=== PATIENT | female | born 1960 | race African-American/Black ===

== ENCOUNTER 2017-07-10 19:31 | Inpatient (IN) | payer OTHER ==
[~2017-07-10] VITALS: Ht 167.6 cm; Wt 121.2 kg
[~2017-07-10 19:31] MED LIST: ALBUTEROL1.25 MG/3 NEB; ALLOPURINOL100 MG; ALPRAZOLAM0.25 M1 PO; AMBIEN5 MG PO; AMLODIPINE BES2.5 M1 PO; APR10 PO; APR25 PO; ASPIR 8181 MG PO; ATROVENT H0.017 MG/1; BIAXIN FILMTAB250 MG PO; CALCITRIOL0.25 MCG PO; CLONIDINE HCL0.1 MG PO; CLONIDINE HCL0.2 MG PO; COQ10 IN OIL1 SGL PO; FERROUS SULFAT325 M2 PO; GLIPIZIDE2.5 M1 PO; HUMULIN R100 U/1 M1; IPRATROPIUM BR HHN; IPRATROPIUM BROM3 M2 HHN; L40 PO; LAC PO; LANTUS SOLOS100 U/M1 SQ; LEV250 PO; LIPI10 PO; LISINOPRIL2.5 MG PO; LOP50 PO; MEDDP PO; METOPROLOL SUCC25 M1 PO; NATURAL IRON65 MG; PROMETHAZI6.25 MG/5 PO; PROTONIX20 MG PO; PROVENTIL0.09 MG/A1; VITAMIN D1 SG1; VITAMIN D32000 I2 PO; ZES10 PO
[2017-07-10 20:55] LABS: BASOPHIL % 0.1 % (0-2); PLATELET COUNT 327 x10^3mcL (130-400)
[2017-07-10 21:05] LABS: CALCIUM 8.1 mg/dL (8.5-10.1); CARBON DIOXIDE 24.5 mmol/L (21-32); CREATININE SERUM 3.1 mg/dL (0.6-1.0)
[2017-07-10 21:09] LABS: BILIRUBIN TOTAL 0.5 mg/dL (0.20-1.00)
[2017-07-10 21:11] LABS: ALBUMIN 2.5 g/dL (3.4-5.0); TOTAL PROTEIN, SERUM 5.6 g/dL (6.4-8.2)
[2017-07-10 22:43] VITALS: BP 163/75
[2017-07-10 22:52] VITALS: BP 163/75; Ht 167.6 cm; Wt 121.2 kg
[2017-07-10 23:05] LABS: CHOLESTEROL/HDL RATIO 3.1; MAGNESIUM 1.2 mg/dL (1.8-2.4); PHOSPHOROUS 3.7 mg/dL (2.5-4.9)
[2017-07-10 23:14] LABS: T3 TOTAL 1.18 ng/mL
[2017-07-10 23:16] LABS: FREE T4 1.27 ng/dL (0.76-1.46); FREE THYROXINE INDEX 3.7 ug/dL (1.4-4.5); T4(THYROXINE) 10.2 ug/dL (4.7-13.3)
[2017-07-10 23:37] LABS: IRON 39 ug/dL (50-170); TOTAL IRON BINDING CAPACITY 239 ug/dL (250-450)
[2017-07-10 23:44] LABS: RED BLOOD CELLS 3.25 M/mm3 (4.10-5.10)
[2017-07-11 03:40] LABS: microscopic required? YES; urine erythrocyte 1+ (NEGATIVE)
[2017-07-11 03:46] LABS: AMPHETAMINE QUAL UR NONE DETECTED (NEG <=1000)
[2017-07-11 05:35] VITALS: BP 145/67
[2017-07-11 06:04] LABS: CALCIUM 8.7 mg/dL (8.5-10.1); CARBON DIOXIDE 22.6 mmol/L (21-32); CREATININE SERUM 3.3 mg/dL (0.6-1.0); POTASSIUM SERUM 4.1 mmol/L (3.5-5.1)
[2017-07-11 06:16] LABS: MAGNESIUM 1.1 mg/dL (1.8-2.4); PHOSPHOROUS 4.6 mg/dL (2.5-4.9)
[2017-07-11 06:19] LABS: PLATELET COUNT 293 x10^3mcL (130-400)
[2017-07-11 06:25] LABS: BASOPHIL % 0 % (0-2); RED CELL DISTRIBUTION WIDTH 18.7 % (11.5-14.5)
[2017-07-11 10:04] VITALS: BP 153/71
[2017-07-11 14:26] VITALS: BP 140/63
[2017-07-11 18:17] VITALS: BP 149/65
[2017-07-11 21:47] VITALS: BP 139/53
[2017-07-12 05:56] VITALS: BP 123/64
[2017-07-12 07:18] LABS: PLATELET COUNT 268 x10^3mcL (130-400)
[2017-07-12 07:19] LABS: BASOPHIL % 0 % (0-2); RED CELL DISTRIBUTION WIDTH 18.5 % (11.5-14.5)
[2017-07-12 07:43] LABS: CALCIUM 8.8 mg/dL (8.5-10.1); CARBON DIOXIDE 21.2 mmol/L (21-32); CREATININE SERUM 3.4 mg/dL (0.6-1.0); MAGNESIUM 2.1 mg/dL (1.8-2.4); POTASSIUM SERUM 4.9 mmol/L (3.5-5.1)
[2017-07-12 10:19] VITALS: BP 156/79
[2017-07-12 14:23] VITALS: BP 142/59
[2017-07-12 18:02] VITALS: BP 137/67
[2017-07-12 21:28] VITALS: BP 137/65
[2017-07-13 05:16] VITALS: BP 154/74
[2017-07-13 07:36] LABS: CALCIUM 8.6 mg/dL (8.5-10.1); CARBON DIOXIDE 21.8 mmol/L (21-32); CREATININE SERUM 3.2 mg/dL (0.6-1.0); MAGNESIUM 2.6 mg/dL (1.8-2.4); PHOSPHOROUS 4.1 mg/dL (2.5-4.9); POTASSIUM SERUM 4.4 mmol/L (3.5-5.1)
[2017-07-13 07:37] LABS: BASOPHIL % 0 % (0-2); PLATELET COUNT 326 x10^3mcL (130-400); RED CELL DISTRIBUTION WIDTH 18.3 % (11.5-14.5)
[2017-07-13] MEDS ORDERED: CLA10 PO (09:12)
[2017-07-13] MEDS ORDERED: LEVAQUIN500 M1 PO (09:21)
[2017-07-13] MEDS ORDERED: CEPACOL SORE TH1 LO4 MM (09:23)
[2017-07-13] MEDS ORDERED: MONTELUKAST SOD10 M1 PO (09:23)
[2017-07-13] MEDS ORDERED: PEP20 PO (09:24)
[2017-07-13] MEDS ORDERED: PREDNISONE10 M1 PO (09:29)
[2017-07-13] MEDS ORDERED: ADV250/50 INH (09:30)
[2017-07-13 09:54] VITALS: BP 159/63
[2017-07-13 13:55] VITALS: BP 159/63
== END 2017-07-13 15:04 | disposition home or self-care (01) | DRG 190 ==
LOC: ED 19:31 → DU 21:49
PROVIDERS: Emergency Medicine; Family Medicine; ADMIT Family Medicine
DX: J44.1 Chronic obstructive pulmonary disease with (acute) exacerbation (principal); N17.0 Acute kidney failure with tubular necrosis; E43 Unspecified severe protein-calorie malnutrition; I50.43 Acute on chronic combined systolic (congestive) and diastolic (congestive) heart failure; J96.21 Acute and chronic respiratory failure with hypoxia; N18.5 Chronic kidney disease, stage 5; Z68.41 Body mass index [BMI] 40.0-44.9, adult; I13.2 Hypertensive heart and chronic kidney disease with heart failure and with stage 5 chronic kidney disease, or end stage renal disease; E11.22 Type 2 diabetes mellitus with diabetic chronic kidney disease; E11.65 Type 2 diabetes mellitus with hyperglycemia; E11.21 Type 2 diabetes mellitus with diabetic nephropathy; D63.1 Anemia in chronic kidney disease; E83.41 Hypermagnesemia; G47.33 Obstructive sleep apnea (adult) (pediatric); D72.829 Elevated white blood cell count, unspecified; E66.01 Morbid (severe) obesity due to excess calories; R80.9 Proteinuria, unspecified; R31.9 Hematuria, unspecified; N28.1 Cyst of kidney, acquired; E83.51 Hypocalcemia; E87.8 Other disorders of electrolyte and fluid balance, not elsewhere classified; M10.9 Gout, unspecified; Z79.4 Long term (current) use of insulin; Z79.84 Long term (current) use of oral hypoglycemic drugs; T38.0X5A Adverse effect of glucocorticoids and synthetic analogues, initial encounter; Y92.238 Other place in hospital as the place of occurrence of the external cause
CPT/HCPCS: 83880; 84439; 94150; J0610; J1644; J1815; J1940; J1956; J2543; J2920; J2930; J3475; J3490; J7030; J7050; J7613; J7620; J7644; Q0092

== ENCOUNTER 2017-09-17 10:25 | Emergency (ER) | payer OTHER ==
[~2017-09-17] VITALS: Ht 167.6 cm; Wt 112.9 kg
[~2017-09-17 10:25] MED LIST changes: +ADV250/50 INH; +CEPACOL SORE TH1 LO4 MM; +CLA10 PO; +LEVAQUIN500 M1 PO; +MONTELUKAST SOD10 M1 PO; +PEP20 PO; +PREDNISONE10 M1 PO
[2017-09-17 10:34] VITALS: Ht 167.6 cm; Wt 112.9 kg
[2017-09-17 16:18] VITALS: BP 172/88
== END 2017-09-17 16:20 | disposition home or self-care (01) ==
LOC: ED 10:25
DX: J44.9 Chronic obstructive pulmonary disease, unspecified (principal); I11.0 Hypertensive heart disease with heart failure; I50.9 Heart failure, unspecified; E11.9 Type 2 diabetes mellitus without complications; Z79.51 Long term (current) use of inhaled steroids
CPT/HCPCS: J7613

== ENCOUNTER 2017-11-10 16:07 | Inpatient (IN) | payer OTHER ==
[~2017-11-10] VITALS: Ht 167.6 cm; Wt 114.5 kg
[2017-11-10 16:11] VITALS: Ht 167.6 cm; Wt 114.5 kg
[2017-11-10 16:55] LABS: BASOPHIL % 0.4 % (0-2); PLATELET COUNT 243 x10^3mcL (130-400)
[2017-11-10 17:00] LABS: RED CELL DISTRIBUTION WIDTH 18.7 % (11.5-14.5)
[2017-11-10 17:19] LABS: T3 TOTAL 1.11 ng/mL
[2017-11-10 17:37] LABS: ERYTHROCYTE SED RATE 60 mm/hr (0-30)
[2017-11-10 17:40] LABS: FREE T4 1.12 ng/dL (0.76-1.46); FREE THYROXINE INDEX 3.1 ug/dL (1.4-4.5); T4(THYROXINE) 9.5 ug/dL (4.7-13.3)
[2017-11-10 18:21] LABS: BILIRUBIN TOTAL 0.5 mg/dL (0.20-1.00); C REACTIVE PROTEIN 2.7 mg/dL (<=0.9); CALCIUM 8.7 mg/dL (8.5-10.1); CARBON DIOXIDE 24.1 mmol/L (21-32); TOTAL PROTEIN, SERUM 6.2 g/dL (6.4-8.2)
[2017-11-10 18:26] LABS: ALBUMIN 2.8 g/dL (3.4-5.0)
[2017-11-10 18:28] LABS: CREATININE SERUM 4.1 mg/dL (0.6-1.0)
[2017-11-10] MEDS ORDERED: FUROSEMIDE40 MG PO (18:52)
[2017-11-10 20:37] VITALS: BP 150/76
[2017-11-10 20:39] VITALS: BP 135/86
[2017-11-10 20:41] VITALS: BP 150/76
[2017-11-10 21:09] LABS: MAGNESIUM 1.6 mg/dL (1.8-2.4); PHOSPHOROUS 3.9 mg/dL (2.5-4.9)
[2017-11-10 21:17] LABS: CHOLESTEROL/HDL RATIO 3.4
[2017-11-11 02:24] LABS: UA SPECIFIC GRAVITY 1.015 (1.005-1.035); microscopic required? YES; urine erythrocyte 2+ (NEGATIVE)
[2017-11-11 02:45] LABS: AMPHETAMINE QUAL UR NONE DETECTED (NEG <=1000)
[2017-11-11 05:26] VITALS: BP 153/71
[2017-11-11 07:25] LABS: PLATELET COUNT 163 x10^3mcL (130-400)
[2017-11-11 07:42] LABS: CALCIUM 8.5 mg/dL (8.5-10.1); CARBON DIOXIDE 22.7 mmol/L (21-32); MAGNESIUM 1.7 mg/dL (1.8-2.4); POTASSIUM SERUM 4.7 mmol/L (3.5-5.1); RED CELL DISTRIBUTION WIDTH 18.1 % (11.5-14.5)
[2017-11-11 07:58] LABS: CREATININE SERUM 4.1 mg/dL (0.6-1.0)
[2017-11-11 08:11] LABS: ATYPICAL LYMPH 2 %; BAND NEUTROPHIL 1 % (0-10); MONOCYTE 2 % (0-7); SEGMENTED NEUTROPHILS 83 % (37-75)
[2017-11-11 08:12] LABS: ovalocyte/elliptocyte 1+; rbc morphology (normal/abnorm) ABNORMAL (NORMAL)
[2017-11-11 09:32] VITALS: BP 154/65
[2017-11-11 13:48] VITALS: BP 155/71
[2017-11-11 17:36] VITALS: BP 157/77
[2017-11-11 21:26] VITALS: BP 148/72
[2017-11-12 06:20] LABS: PLATELET COUNT 227 x10^3mcL (130-400)
[2017-11-12 06:22] VITALS: BP 153/71
[2017-11-12 06:34] LABS: BASOPHIL % 0 % (0-2); RED CELL DISTRIBUTION WIDTH 18.5 % (11.5-14.5)
[2017-11-12 07:07] LABS: CALCIUM 9.2 mg/dL (8.5-10.1); CARBON DIOXIDE 22.5 mmol/L (21-32); CREATININE SERUM 3.9 mg/dL (0.6-1.0); MAGNESIUM 2.2 mg/dL (1.8-2.4); POTASSIUM SERUM 4.1 mmol/L (3.5-5.1)
[2017-11-12 10:05] VITALS: BP 156/74
[2017-11-12 12:16] VITALS: BP 156/74
[2017-11-12] MEDS ORDERED: COREG12.5 MG PO (12:24)
[2017-11-12] MEDS ORDERED: MEDDP PO (12:30)
[2017-11-12 12:57] VITALS: BP 165/85
[2017-11-12 15:17] VITALS: BP 152/70
[2017-11-12] MEDS ORDERED: KLOR-CON M2020 MEQ PO (15:37)
[2017-11-12] MEDS ORDERED: APR25 PO (16:19)
[2017-11-12] MEDS ORDERED: LEVAQUIN750 MG PO (16:24)
[2017-11-12] MEDS ORDERED: LAC PO (16:25)
== END 2017-11-12 17:20 | disposition home or self-care (01) | DRG 291 ==
LOC: ED 16:07 → DU 18:34
PROVIDERS: Family Medicine; Internal Medicine Cardiovascular Disease; Specialist
DX: I13.2 Hypertensive heart and chronic kidney disease with heart failure and with stage 5 chronic kidney disease, or end stage renal disease (principal); I50.43 Acute on chronic combined systolic (congestive) and diastolic (congestive) heart failure; N17.0 Acute kidney failure with tubular necrosis; E43 Unspecified severe protein-calorie malnutrition; J96.00 Acute respiratory failure, unspecified whether with hypoxia or hypercapnia; J44.1 Chronic obstructive pulmonary disease with (acute) exacerbation; Z68.41 Body mass index [BMI] 40.0-44.9, adult; N18.5 Chronic kidney disease, stage 5; E11.21 Type 2 diabetes mellitus with diabetic nephropathy; E11.22 Type 2 diabetes mellitus with diabetic chronic kidney disease; E83.42 Hypomagnesemia; I42.0 Dilated cardiomyopathy; I08.1 Rheumatic disorders of both mitral and tricuspid valves; E78.5 Hyperlipidemia, unspecified; M10.9 Gout, unspecified; K21.9 Gastro-esophageal reflux disease without esophagitis; D63.1 Anemia in chronic kidney disease; F41.9 Anxiety disorder, unspecified; E66.01 Morbid (severe) obesity due to excess calories; Z83.3 Family history of diabetes mellitus; Z82.49 Family history of ischemic heart disease and other diseases of the circulatory system; Z98.51 Tubal ligation status; Z79.82 Long term (current) use of aspirin; Z79.4 Long term (current) use of insulin
CPT/HCPCS: 83880; 84439; J1815; J1940; J1956; J2920; J2930; J3475; J7030; J7613; J7620; J7644

== ENCOUNTER 2018-10-31 16:49 | Observation (INO) | payer OTHER ==
[~2018-10-31] VITALS: Ht 167.6 cm; Wt 111.6 kg
[~2018-10-31 16:49] MED LIST changes: +COREG12.5 MG PO; +FUROSEMIDE40 MG PO; +KLOR-CON M2020 MEQ PO; +LEVAQUIN750 MG PO
[2018-10-31 16:57] VITALS: Ht 167.6 cm; Wt 111.6 kg
--- NOTE | 2018-10-31 17:11 | NUR ---
PT PRESENTS TO ED WITH COUGHING, SOB, AND COLD FOR THE PAST 3-4 WEEKS. STS SHE WENT TO DIALYSIS THIS AM. STS THE SOB HAS NOT IMPROVED AND CAME TO ED FOR TREATMENT. DR. HINDS AT BEDSIDE PERFORMED MSE
--- NOTE | 2018-10-31 17:25 | NUR ---
BREATHING TREATMENT IN PROGRESS
[2018-10-31 17:33] LABS: BASOPHIL % 0.1 % (0-2); PLATELET COUNT 279 x10^3mcL (130-400)
[2018-10-31 17:41] LABS: CALCIUM 9.1 mg/dL (8.5-10.1); CARBON DIOXIDE 33.4 mmol/L (21-32); CREATININE SERUM 2.9 mg/dL (0.6-1.0); POTASSIUM SERUM 3.9 mmol/L (3.5-5.1)
[2018-10-31 17:46] LABS: BILIRUBIN TOTAL 1.19 mg/dL (0.20-1.00); TOTAL PROTEIN, SERUM 7.1 g/dL (6.4-8.2)
--- NOTE | 2018-10-31 19:28 | NUR ---
PT RESTING QUIETLY. RESPIRATIONS EVEN AND UNLABORED. PT ON OXYGEN AT 3LPM VIA NC. OXYGEN TURNED DOWN TO 2LPM VIA NC. LUNGS CLEAR BILAT. PT DENIES PAIN OR COMPLAINT AT THIS TIME.
--- NOTE | 2018-10-31 20:03 | NUR ---
PT DOES NOT HAVE HER PARTIAL DENTURE WITH HER.
--- NOTE | 2018-10-31 21:18 | NUR ---
REPORT TO FERNANDEZ SANTIAGO ON TELE.
--- NOTE | 2018-10-31 21:30 | NUR ---
RECIEVED PATIENT AT 213O FROM ER VIA [facility]. PATIENT AMBULATED TO BED. HOOKED UP ON 2L NC. SATTING 93%. PATIENT ORIENTED TO TOOM AND USE OF CALL LIGHT. BED LOCKED AND IN LOWEST POSITION. CALL LIGHT AND BEDSIDE TABLE WITHIN REACH. ANKUSH HANLEY RN TO ADMIT PATIENT.
[2018-10-31 21:51] VITALS: BP 147/79
[2018-10-31 21:52] VITALS: BP 149/75
--- NOTE | 2018-10-31 22:03 | NUR ---
RECEIVED PT FROM ER. PT ADMIT FOR SOB, PNA, PT IS A/O X4, VERBAL RESPONSIVE, ABLE TO TELL WHAT SHE NEEDS. LUNG SOUND WHEEZING CARINE, DENY ANY SOB AT THIS MOMENT. C/O OCCASIONAL COUGH, PT IS ON 2L/MIN O2 VIA NC. PO2 93%. PT IS ON TELE 30, NSR, DENY ANY CHEST PAIN OR DISCOMFORT, BOWEL SOUND PRESENT ALL 4 QUADRANTS, NO DISTENTION, NO TENDER. PEDAL PULSE PRESENT BOTH FEET, NO EDEMA, IV AT LEFT AC, NO LEAKING, NO INFILTRATION. AV SHUNT AT RIGHT UPPER ARM, B/T PRESENT WELL, ALL ADLS ASSIST, ALL NEED MET, CALL LIGHT IN REACH, WILL CONTINUE TO MONITOR.
--- NOTE | 2018-11-01 02:17 | NUR ---
PATIENT'S EYES ARE CLOSED, BREATHS EVEN AND REGUALR. NO CHANGE IN STATUS. WILL CONTINEU TO MONITOR.
[2018-11-01 05:51] VITALS: BP 141/73
--- NOTE | 2018-11-01 06:50 | NUR ---
NO CHANGE IN PATIENT STATUS OVERNIGHT. LUNGS HAVE SLIGHT WHEEZE THROUGHOUT. ON 2L NC, NO SOB NOTED. BED LOCKED AND IN LOWEST POSITION. CALL LIGHT AND BEDSIDE TABLE WITHIN REACH. WILL ENDORSE CARE TO MORNING NURSE.
[2018-11-01 07:07] LABS: CALCIUM 9.3 mg/dL (8.5-10.1); CARBON DIOXIDE 27.9 mmol/L (21-32); CREATININE SERUM 3.5 mg/dL (0.6-1.0); MAGNESIUM 1.7 mg/dL (1.8-2.4); POTASSIUM SERUM 3.9 mmol/L (3.5-5.1)
--- NOTE | 2018-11-01 07:54 | NUR ---
AAO TIMES 4. TELE # 30 SR. LUNGS CTA BILATERALLY, WITH DIMINISHED LLL. O2 SAT ON 2L NC 95%. BS'S ACTIVE TIMES 4. LONG WITH SLIGHT GENERALIZED WEAKNESS. PERIPHERAL PULSES PALPABLE. NO EDEMA. AV SHUNT TO RUE WITH BRUIT AND THRILL. NO C/O PAIN. NO SOB. PLEASANT, COOPERATIVE.
[2018-11-01 07:59] LABS: PLATELET COUNT 242 x10^3mcL (130-400)
[2018-11-01 08:01] LABS: BASOPHIL % 0 % (0-2); RED CELL DISTRIBUTION WIDTH 15.6 % (11.5-14.5)
[2018-11-01 08:25] VITALS: BP 149/69
--- NOTE | 2018-11-01 12:04 | NUR ---
DR COLON WAS PAGED AT [phone] AND HE WAS REPAGED AGAIN AND CALLED BACK AT 1202. HE IS AWARE THAT HER BLOOD SUGAR WAS 501 AND REPEATED IT WAS 507. GIVE THE ORDERED AMOUNT OF INSULIN ACCORDING TO THE SLIDING SCALE, DECREASE THE SOLUMEDROL TO BID AND GIVE 2 GRAMS OF MAGNESIUM IVPB FOR MAG OF 1.7.
[2018-11-01 12:30] VITALS: BP 172/83
--- NOTE | 2018-11-01 16:51 | NUR ---
I CALLED DR COLON'S OFFICE EXCHANGE AT 1618 FOR BLOOD SUGAR OF 522, THEN RECHECK IT WAS 575, HE DID NOT CALL BACK. I REPAGED HIM AGAIN AT 1647 AND HE CALLED BACK AT 1650, HE WANTS THE SOLUMEDROL DOSE TO BE DECREASED TO ONCE DAILY INSTEAD OF BID AND HE WANTS HER TO GET INSULIN 30 UNITS SQ ONCE STAT.
--- NOTE | 2018-11-01 17:57 | NUR ---
AAO TIMES 4. HD NURSE TRIED TO START HD BUT HER RUE AV SHUNT WAS CLOTTED AND IT COULDNT BE DONE. ANOTHER NEW HD NURSE WILL RETRY TOMORROW, AND IF IT IS STILL CLOTTED, DR ARORA WOULD LIKE HER TO GO TO A HIGHER LEVEL OF CARE TO GET IT UNCLOTTED. TELE # 30 SR. NO C/O PAIN. NO SOB. COOPERATIVE.
[2018-11-01 18:05] VITALS: BP 146/80
--- NOTE | 2018-11-01 20:00 | NUR ---
PATIENT RECEIVED AWAKE, ALERT, ORIENTED X4 IN BED. RESPIRATION EVEN AND UNLABORED, ON O2 2L PER NASAL CANNULA. ONGOING 0.9% NS AT TKO. HEMODIALYSIS PATIENT (MWF). GENERALIZED WEAKNESS TO EXTREMITIES. SKIN DRY AND INTACT. ON TELE #30. WILL CONTINUE TO MONITOR.
[2018-11-01 20:22] VITALS: BP 183/69
[2018-11-02] VITALS (7 sets, daily range): BP systolic 134–177; BP diastolic 63–82
--- NOTE | 2018-11-02 06:20 | NUR ---
PATIENT AWAKE IN BED TALKING ON THE PHONE. RESPIRATION EVEN AND UNLABORED, ON O2 2L PER NASAL CANNULA. DENIES DISCOMFORT/PAIN AT THIS TIME. IV SITE TO LEFT ANTECUBITAL AREA PATENT AND INTACT. RIGHT UPPER ARM AV SHUNT +THRILL AND BRUIT. ASSISTED WITH NEEDS. SAFETY OBSERVED. PLACED BED IN THE LOWEST POSITION. PLACED CALL LIGHT WITHIN REACH AT ALL TIMES.
[2018-11-02 06:44] LABS: CALCIUM 9.1 mg/dL (8.5-10.1); CARBON DIOXIDE 28.9 mmol/L (21-32); CREATININE SERUM 3.9 mg/dL (0.6-1.0); MAGNESIUM 2.4 mg/dL (1.8-2.4); PHOSPHOROUS 3.2 mg/dL (2.5-4.9); POTASSIUM SERUM 3.9 mmol/L (3.5-5.1)
[2018-11-02 06:48] LABS: BILIRUBIN DIRECT 0.13 mg/dL (0.0-0.2); BILIRUBIN TOTAL 0.3 mg/dL (0.20-1.00); TOTAL PROTEIN, SERUM 6.6 g/dL (6.4-8.2)
[2018-11-02 07:16] LABS: BASOPHIL % 0 % (0-2); PLATELET COUNT 249 x10^3mcL (130-400); RED CELL DISTRIBUTION WIDTH 15.8 % (11.5-14.5)
[2018-11-02 07:24] LABS: ALBUMIN 2.7 g/dL (3.4-5.0)
--- NOTE | 2018-11-02 07:30 | NUR ---
PT ENDORSE TO ME THIS MORNING. LAYING IN BED RESTING. AA/OX4. BREATHING EVEN AND UNLABORED 2L NC, NO ACUTE RESP DISTRESS OR SOB NOTED. TELE 30 NSR, HR 95/ DENIES ANY CP OR PRESSURE. HEMODIALYSIS PT MWF, DUE TO DIALYSIS TODAY. RIGHT AV SHUNT INPLACE/BRUIT AND THRILL PRESENT. BOWEL SOUNDS ACTIVE IN ALL FOUR QUADS. PATIENT STATED SHE VOIDS STILL REG. GEN WEAKNESS NOTED/ABM. SKIN WARM TO TOUCH AND INTACT. IV TO THE LAC INTACT AND PATENT. NO REDNESS OR SWELLING NOTED.CALL LIGHT IN REACH. BED IN LOW POSITION. WILL CONTINUE PLAN OF CARE.
--- NOTE | 2018-11-02 13:20 | NUR ---
PT TOLERATED 100 % OF LUNCH. DENIES ANY SOB OR DISCOMFORT AT THIS TIME/ WILL CONTINUE TO MONITOR.
--- NOTE | 2018-11-02 15:51 | NUR ---
HD COMPLETE/ TOTAL OUTPUT 2L, VS 134/69, MAP 90 HR 83
--- NOTE | 2018-11-02 18:26 | NUR ---
NO ACUTE CHANGES AT THIS TIME. NO ACUTE RESP DISTRESS OR SOB NOTED, REMAINS ON 2 L NC. DENIES ANY CP OR PRESSURE. LAST HD TODAY, TOTAL OUT PUT 2L/ TOERATED WELL. IV TO THE LAC INTACT AND PATENT/HEPLOCKED. NO REDNESS OR SWELLING NOTED. CALL LIGHT IN REACH. BED IN LOW POSITION. SON AT BEDSIDE. WILL ENDORSE TO INCOMING RN.
--- NOTE | 2018-11-02 20:03 | NUR ---
PATIENT'S PLAN OF CARE WAS DISCUSSED AND REVIEWED WITH BUSINESS CONTINUITY MANAGEMENT DIRECTOR:ELMO DAMIAN
--- NOTE | 2018-11-02 20:34 | NUR ---
RECIEVED PT IN BED AAOX4 NO RESP DISTRESS NOTED, LUNG SOUNDS DIMINISHED ON 2L N/C , PT'S ON TELE NUMBER 30 THAT SHOWS NSR , ABD SOFT BS ACTIVE X4 QUADRANT , PT'S ON HD LAST HD WAS TODAY , AV GRAFT TP DIANA WITH GOOD BRUIT/THRILL, PIV TO LAC INTACT INFUSING WELL NS AT 10ML/HR . CALL LIGHT WITHIN PT'S REACH ,WILL CON'T TO MONITOR AND ASSIST PT WITH CARE .
--- NOTE | 2018-11-03 00:39 | NUR ---
I HAVE REVIEWED THE DATA COLLECTION BY JAYSON (NAME):ELMO DAMIAN ENTERED ON (DATE/TIME):11/02/18 I CONCUR WITH THE DATA AND ANY EXCEPTIONS OR COMMENTS ARE LISTED BELOW:
--- NOTE | 2018-11-03 00:48 | NUR ---
PT;S IN BED WITH EYES CLOSED , TELE NSR , PIV INTACT INFUSING WELL .
[2018-11-03 05:25] VITALS: BP 140/61
--- NOTE | 2018-11-03 06:26 | NUR ---
O CHANGES OF CONDITION NOTED , ALL DUE MEDS GIVEN NO REACTION NOTED, HL INTACT FLUSHING WELL, AV SHUNT WITH BRUIT/THILL, TELE NSR , CALL LIGHT WITHIN PT'S REACH , WILLL CON'T TO MONITOR PT .
[2018-11-03 06:49] LABS: CALCIUM 8.7 mg/dL (8.5-10.1); CARBON DIOXIDE 28.4 mmol/L (21-32); CREATININE SERUM 3.1 mg/dL (0.6-1.0); MAGNESIUM 1.8 mg/dL (1.8-2.4); PHOSPHOROUS 3.7 mg/dL (2.5-4.9); POTASSIUM SERUM 3.8 mmol/L (3.5-5.1)
--- NOTE | 2018-11-03 07:30 | NUR ---
PT ENDORSE TO ME THIS MORNING. LAYING IN BED RESTING/ AA/O X4 BREATHING EVEN AND UNLABORED ON 2L NC, NO ACUTE RESP DISTRESS OR SOB NOTED. TELE 30 NSR NOTED HR 86, DENIES ANY CP OR PRESSURE. HD PATIENT ON // LAST HD 11/02 2L OUT. AV SHUNT DIANA. IV TO LAC INTACT AND PATENT. NO REDNESS OR SWELLING NOTE. CALL LIGHT IN REACH, BED IN LOW POSITION. WILL CONTINUE PLAN OF CARE.
[2018-11-03 07:32] LABS: BASOPHIL % 0.1 % (0-2); PLATELET COUNT 227 x10^3mcL (130-400); RED CELL DISTRIBUTION WIDTH 15.2 % (11.5-14.5)
--- NOTE | 2018-11-03 09:22 | NUR ---
PT C/O LLANOS, MEDICATED PER EMAR. TOLERATED 100% OF HER BF. WILL CONTINUE TO MONITOR.
[2018-11-03 09:23] VITALS: BP 143/70
[2018-11-03 13:30] VITALS: BP 115/47
[2018-11-03 17:02] VITALS: BP 135/66
--- NOTE | 2018-11-03 17:16 | NUR ---
EXPLAINED DISCHARGE INSTRUCTIONS, NEW/CONTINUED MEDS AND FOLLOW UP WITH PRIMARY DOCTOR. PT AGREED AND SIGNED ALL DOCUMENTS. REMOVED IV TO LAC/ CATHETER TIP INTACT, TOLERATED REMOVAL WELL. REMOVED TELE 30/ AND RETURNED. PT WILL CALL NURSING STATION ONCE HER SON HAS ARRIVED.
--- NOTE | 2018-11-03 18:10 | NUR ---
PT SON ARRIVED TO PICK PT UP AND TAKE HER HOME. MEGGAN GOLDBERG WHEELED PT DOWN TO FRONT OF HOSPITAL. NO ACUTE RESP DISTRESS OR SOB NOTED. PT GOING HOME WITH 02 2LNC/ TOLERATING WELL. PT DENIES ANY CP OR PRESSURE. PT HAPPY TO BE GOING HOME. DISCHARGE.
== END 2018-11-03 18:20 | disposition home or self-care (01) | DRG 291 ==
LOC: ED 16:49 → DU 19:44
PROVIDERS: Emergency Medicine; Internal Medicine; Internal Medicine Nephrology; ADMIT Internal Medicine Pulmonary Disease
DX: I13.2 Hypertensive heart and chronic kidney disease with heart failure and with stage 5 chronic kidney disease, or end stage renal disease (principal); I50.43 Acute on chronic combined systolic (congestive) and diastolic (congestive) heart failure; N18.6 End stage renal disease; I24.8 Other forms of acute ischemic heart disease; J44.1 Chronic obstructive pulmonary disease with (acute) exacerbation; J96.11 Chronic respiratory failure with hypoxia; E44.1 Mild protein-calorie malnutrition; I42.9 Cardiomyopathy, unspecified; E11.65 Type 2 diabetes mellitus with hyperglycemia; G47.30 Sleep apnea, unspecified; E66.9 Obesity, unspecified; D63.1 Anemia in chronic kidney disease; Z68.39 Body mass index [BMI] 39.0-39.9, adult; Z99.2 Dependence on renal dialysis; Z99.81 Dependence on supplemental oxygen
CPT/HCPCS: 82962; 83880; 87804; G0378; J0456; J0696; J1644; J1815; J2920; J2930; J3475; J7030; J7050; J7613; J7620; J7626; Q0092

== ENCOUNTER 2018-11-27 06:10 | Inpatient (IN) | payer OTHER ==
[~2018-11-27] VITALS: Ht 167.6 cm; Wt 108.6 kg
[2018-11-27 06:17] VITALS: Ht 167.6 cm; Wt 108.6 kg
[2018-11-27 07:19] LABS: BASOPHIL % 0.1 % (0-2); PLATELET COUNT 225 x10^3mcL (130-400)
[2018-11-27 07:21] LABS: RED CELL DISTRIBUTION WIDTH 17.9 % (11.5-14.5)
[2018-11-27 08:44] LABS: CARBON DIOXIDE 23.8 mmol/L (21-32); CHLORIDE SERUM 103 mmol/L (98-107); CREATININE SERUM 3.5 mg/dL (0.6-1.0); GFR1 14 mL/min; GLUCOSE SERUM 290 mg/dL (74-106); POTASSIUM SERUM 3.9 mmol/L (3.5-5.1); SODIUM SERUM 141 mmol/L (136-145)
[2018-11-27 08:54] LABS: ALKALINE PHOSPHATASE 118 U/L (46-116); ALT/SGPT 20 U/L (14-59); AST/SGOT 17 U/L (15-37); BILIRUBIN TOTAL 0.89 mg/dL (0.20-1.00); C REACTIVE PROTEIN 2.5 mg/dL (<=0.9); TOTAL PROTEIN, SERUM 6.6 g/dL (6.4-8.2)
[2018-11-27 08:55] LABS: ALBUMIN 2.8 g/dL (3.4-5.0)
[2018-11-27 09:15] LABS: CK-MB 1.1 ng/mL (0-3.6); FREE T4 1.24 ng/dL (0.76-1.46); FREE THYROXINE INDEX 3.5 ug/dL (1.4-4.5); T4(THYROXINE) 10.2 ug/dL (4.7-13.3)
[2018-11-27 10:03] LABS: ERYTHROCYTE SED RATE 76 mm/hr (0-30)
[2018-11-27] MEDS ORDERED: METOPROLOL TART50 MG PO (10:26)
[2018-11-27 14:39] VITALS: BP 114/55
[2018-11-27 15:00] VITALS: BP 156/67
[2018-11-27 15:55] VITALS: BP 154/74
[2018-11-27 16:14] LABS: UA SPECIFIC GRAVITY 1.015 (1.005-1.035); microscopic required? YES; urine erythrocyte 1+ (NEGATIVE)
[2018-11-27 19:25] VITALS: BP 153/79
[2018-11-27 20:42] LABS: T3 TOTAL 1.32 ng/mL
[2018-11-27 23:05] VITALS: BP 150/73
[2018-11-28 03:05] VITALS: BP 147/69
[2018-11-28 06:03] LABS: BASOPHIL % 0.5 % (0-2); PLATELET COUNT 207 x10^3mcL (130-400); RED CELL DISTRIBUTION WIDTH 17.3 % (11.5-14.5)
[2018-11-28 06:14] LABS: CALCIUM 9.1 mg/dL (8.5-10.1); POTASSIUM SERUM 4.7 mmol/L (3.5-5.1)
[2018-11-28 06:17] LABS: CREATININE SERUM 4.1 mg/dL (0.6-1.0)
[2018-11-28] MEDS ORDERED: CLARITIN10 MG PO (08:11)
[2018-11-28 09:44] VITALS: BP 167/73
[2018-11-28 12:39] VITALS: BP 153/97
== END 2018-11-28 15:13 | disposition home or self-care (01) | DRG 291 ==
LOC: ED 06:10 → IC 09:50
PROVIDERS: Specialist; ADMIT Internal Medicine Pulmonary Disease
DX: I13.2 Hypertensive heart and chronic kidney disease with heart failure and with stage 5 chronic kidney disease, or end stage renal disease (principal); I50.23 Acute on chronic systolic (congestive) heart failure; J18.9 Pneumonia, unspecified organism; N18.6 End stage renal disease; J96.01 Acute respiratory failure with hypoxia; J44.1 Chronic obstructive pulmonary disease with (acute) exacerbation; I42.9 Cardiomyopathy, unspecified; I27.20 Pulmonary hypertension, unspecified; E11.22 Type 2 diabetes mellitus with diabetic chronic kidney disease; E11.65 Type 2 diabetes mellitus with hyperglycemia; E66.01 Morbid (severe) obesity due to excess calories; G47.33 Obstructive sleep apnea (adult) (pediatric); E78.5 Hyperlipidemia, unspecified; Z99.2 Dependence on renal dialysis; Z99.81 Dependence on supplemental oxygen; Z68.39 Body mass index [BMI] 39.0-39.9, adult; Z79.84 Long term (current) use of oral hypoglycemic drugs
CPT/HCPCS: 82962; 83880; 84439; 87804; J0360; J0696; J1644; J1815; J2543; J2920; J7030; J7613; J7620; J7644; Q0092